=== PATIENT | female | born 1950 | race Caucasian/White ===

== ENCOUNTER 2017-12-11 09:48 | Day surgery (SDC) | payer MEDICARE, OTHER ==
[~2017-12-11] VITALS: Ht 167.6 cm; Wt 79.0 kg
[~2017-12-11 09:48] MED LIST: Aspirin EC81 MG PO; DULO60 PO; Janumet 50-1,01 EACH PO; Omeprazole20 M1 PO; ZESTORETIC 20-121 EA PO; Zocor40 MG PO
[2017-12-11] MEDS ORDERED: METF500 (10:47)
== END 2017-12-11 12:46 | disposition home or self-care (01) ==
LOC: ORSCSDS 09:48
DX: Z12.11 Encounter for screening for malignant neoplasm of colon (principal); Z86.010 Personal history of colon polyps; D12.0 Benign neoplasm of cecum; D12.2 Benign neoplasm of ascending colon; D12.3 Benign neoplasm of transverse colon; K57.30 Diverticulosis of large intestine without perforation or abscess without bleeding; K63.89 Other specified diseases of intestine; K64.8 Other hemorrhoids; E11.9 Type 2 diabetes mellitus without complications; I10 Essential (primary) hypertension; Z79.899 Other long term (current) drug therapy
CPT/HCPCS: 82947; 88305

== ENCOUNTER 2018-06-14 07:05 | Day surgery (SDC) | payer MEDICARE, OTHER ==
[~2018-06-14] VITALS: Ht 167.6 cm; Wt 76.0 kg
[~2018-06-14 07:05] MED LIST changes: +METF500
== END 2018-06-14 09:36 | disposition home or self-care (01) ==
LOC: ORSCSDS 07:05
PROVIDERS: Internal Medicine Gastroenterology
PROC: 0DBK8ZX Excision of Ascending Colon, Via Natural or Artificial Opening Endoscopic, Diagnostic (ICD-10-PCS; principal; 2018-06-14 08:30)
PROC: 0DBM8ZX Excision of Descending Colon, Via Natural or Artificial Opening Endoscopic, Diagnostic (ICD-10-PCS; principal; 2018-06-14 08:30)
PROC: 0DBL8ZX Excision of Transverse Colon, Via Natural or Artificial Opening Endoscopic, Diagnostic (ICD-10-PCS; principal; 2018-06-14 08:30)
DX: Z86.010 Personal history of colon polyps (principal); D12.2 Benign neoplasm of ascending colon; D12.3 Benign neoplasm of transverse colon; D12.4 Benign neoplasm of descending colon; K57.30 Diverticulosis of large intestine without perforation or abscess without bleeding; K63.89 Other specified diseases of intestine; K64.8 Other hemorrhoids; I10 Essential (primary) hypertension; E11.9 Type 2 diabetes mellitus without complications; K21.9 Gastro-esophageal reflux disease without esophagitis; Z79.899 Other long term (current) drug therapy
CPT/HCPCS: 82947; 88305; J0330; J1980; J2405; J7120

== ENCOUNTER 2021-04-08 11:51 | Day surgery (SDC) | payer MEDICARE, OTHER ==
[~2021-04-08] VITALS: Ht 167.6 cm; Wt 75.7 kg
[2021-04-08] MEDS ORDERED: TRULICITY0.75 MG/01 (12:36)
== END 2021-04-08 13:55 | disposition home or self-care (01) ==
LOC: ORSCSDS 11:51
PROVIDERS: Internal Medicine Gastroenterology
PROC: 0DBF8ZX Excision of Right Large Intestine, Via Natural or Artificial Opening Endoscopic, Diagnostic (ICD-10-PCS; principal; 2021-04-08 13:15)
PROC: 0DBK8ZX Excision of Ascending Colon, Via Natural or Artificial Opening Endoscopic, Diagnostic (ICD-10-PCS; principal; 2021-04-08 13:15)
DX: Z12.11 Encounter for screening for malignant neoplasm of colon (principal); Z86.010 Personal history of colon polyps; D12.2 Benign neoplasm of ascending colon; K52.9 Noninfective gastroenteritis and colitis, unspecified; K57.30 Diverticulosis of large intestine without perforation or abscess without bleeding; K64.1 Second degree hemorrhoids; I10 Essential (primary) hypertension; E11.9 Type 2 diabetes mellitus without complications; Z79.899 Other long term (current) drug therapy
CPT/HCPCS: 82947; 88305; J2704; J7120

== ENCOUNTER → 2022-02-16 | Outpatient (CLI) | payer MEDICARE, OTHER ==
[~2022-02-16] MED LIST changes: +TRULICITY0.75 MG/01
[2022-02-24 13:33] LABS: Stool Occult Bld Immuno 1 Negative (NEGATIVE)
== END | disposition home or self-care (01) ==
LOC: LAB SHORT 19:30
PROVIDERS: Nurse Practitioner Family
DX: Z12.11 Encounter for screening for malignant neoplasm of colon (principal)
CPT/HCPCS: G0328

== ENCOUNTER 2024-05-21 13:38 | Inpatient (IN) | payer MEDICARE, OTHER ==
[~2024-05-21] VITALS: Ht 167.6 cm; Wt 63.5 kg
[~2024-05-21 13:38] MED LIST changes: +ALLOPURINOL100 M1 PO; +Amitriptyline H10 MG PO; +CEFD300 PO; +JANUMET 50-1,01 EACH PO; -Janumet 50-1,01 EACH PO; +LOSARTAN POTASS25 M2 PO; -TRULICITY0.75 MG/01; +TRULICITY0.75 MG/01 SC
[2024-05-21] MEDS ORDERED: NS 1,000 ML IV SCH ×2 (14:05→16:55)
[2024-05-21 14:23] LABS: BASOPHILS ABSOLUTE AUTO 0.03 K/mm3 (0.00-0.23); BASOPHILS PERCENT AUTO 0 % (0-2); EOSINOPHILS ABSOLUTE AUTO 0.01 K/mm3 (0.00-0.68); EOSINOPHILS PERCENT AUTO 0 % (0-6); Hematocrit 40.2 % (33.0-51.0); Hemoglobin 14.2 g/dL (11.5-16.0); IMMATURE GRAN ABSOLUTE AUTO 0.04 K/mm3 (0.00-0.10); IMMATURE GRAN PERCENT AUTO 0 % (0-1); LYMPHOCYTES ABSOLUTE AUTO 0.45 K/mm3 (0.84-5.20); LYMPHOCYTES PERCENT AUTO 3 % (21-46); MONOCYTES ABSOLUTE AUTO 0.95 K/mm3 (0.16-1.47); MONOCYTES PERCENT AUTO 7 % (4-13); Mean Corpuscular HGB 30.7 pg (26.0-34.0); Mean Corpuscular HGB Conc 35.3 g/dL (31.5-36.5); Mean Corpuscular Volume 87 fL (80-100); Mean Platelet Volume 9.4 fL (9.1-12.4); NEUTROPHILS ABSOLUTE AUTO 12.18 K/mm3 (1.96-9.15); NEUTROPHILS PERCENT AUTO 89 % (41-73); Platelet Count 240 K/mm3 (150-400); RDW Coefficient Variation 13.4 % (11.7-14.2); RDW Standard Deviation 42.3 fL (35.1-46.3); Red Blood Cell Count 4.63 M/mm3 (3.80-5.20); White Blood Cell Count 13.66 K/mm3 (4.00-11.30)
[2024-05-21 14:39] LABS: International Normalized Ratio 1.07; Prothrombin Time Results 11.4 Sec (9.7-11.5)
[2024-05-21 14:45] LABS: Albumin, Blood 3.9 g/dL (3.4-5.0); Bun/Creatinine Ratio 29.2 (12.0-20.0); Calcium, Blood 9.6 mg/dL (8.5-10.1); Creatinine, Blood 0.38 mg/dL (0.40-1.00); Globulin, Blood 3.9 g/dL (2.2-4.0); Potassium, Blood 3.1 mmol/L (3.5-5.5); Total Protein, Blood 7.8 g/dL (6.4-8.2)
[2024-05-21] MEDS ORDERED: Acetaminophen 325 MG TABLET PO ONE (15:35)
[2024-05-21 16:08] LABS: Source, Urine Straight Cath
[2024-05-21 16:15] LABS: Bilirubin, Urine Neg (Neg); Blood, Urine Neg (Neg); Glucose Qualitative, Urine Neg (Neg); Ketones, Urine Neg (Neg); Leukocyte Esterase, Urine 2+ (Neg); Nitrite, Urine Pos (Neg); Protein, Urine Neg (Neg); Urobilinogen, Urine NORM (Normal)
[2024-05-21 16:37] LABS: Color, Urine Pale Yellow (P-Yellow)
[2024-05-21 16:38] LABS: Appearance, Urine Hazy (Clear)
[2024-05-21 16:39] LABS: Bacteria Many /hpf; Red Blood Cells, Urine 0-2 /hpf (0-2); Squamous Epithelial Cells Rare /hpf (Few); Transitional Epithelial Cells Rare /hpf (0-Rare)
[2024-05-21] MEDS ORDERED: CefTRIAXone Sodium 1,000 MG in NS 100 ML IV ONE (16:40)
[2024-05-21 17:02] LABS: Influenza A, PCR NEGATIVE (NEGATIVE); Influenza B, PCR NEGATIVE (NEGATIVE); Resp Syncytial Virus, PCR NEGATIVE (NEGATIVE); SARS-Cov-2 (COVID-19) PCR, MMC NEGATIVE (NEGATIVE)
[2024-05-21] MEDS ORDERED: Lactated Ringer's 1,000 ML IV SCH (17:25)
[2024-05-21] MEDS ORDERED: Acetaminophen 325 MG TABLET PO PRN (17:30)
[2024-05-21] MEDS ORDERED: Ondansetron HCl 2 MG / ML 2ML Vial IV PRN (17:30)
[2024-05-21] MEDS ORDERED: Potassium Chloride 20 MEQ TabCR PO ONE (18:00)
[2024-05-21 18:55] VITALS: BP 129/66
[2024-05-21] MEDS ORDERED: PRESERVISION A1 EAC1 PO (20:22)
[2024-05-21] MEDS ORDERED: ALIVE WOMEN S PO (20:23)
[2024-05-21] MEDS ORDERED: ROPI.25 PO (20:25)
[2024-05-21] MEDS ORDERED: Lactobacil 2-S.Thermo-Bifido 1 1 Cap PO SCH (21:00)
[2024-05-22] VITALS (7 sets, daily range): BP systolic 93–155; BP diastolic 65–80
[2024-05-22 05:32] LABS: Hematocrit 36.9 % (33.0-51.0); Hemoglobin 12.6 g/dL (11.5-16.0); Mean Corpuscular HGB 30.6 pg (26.0-34.0); Mean Corpuscular HGB Conc 34.1 g/dL (31.5-36.5); Mean Corpuscular Volume 90 fL (80-100); Mean Platelet Volume 9.7 fL (9.1-12.4); Platelet Count 227 K/mm3 (150-400); RDW Coefficient Variation 13.6 % (11.7-14.2); RDW Standard Deviation 44.8 fL (35.1-46.3); Red Blood Cell Count 4.12 M/mm3 (3.80-5.20); White Blood Cell Count 11.15 K/mm3 (4.00-11.30)
[2024-05-22 05:53] LABS: Bun/Creatinine Ratio 18.1 (12.0-20.0); Calcium, Blood 9.5 mg/dL (8.5-10.1); Creatinine, Blood 0.44 mg/dL (0.40-1.00); Potassium, Blood 3.5 mmol/L (3.5-5.5)
[2024-05-22] MEDS ORDERED: Omeprazole 20 MG CapCR PO SCH (06:00)
--- NOTE | 2024-05-22 06:03 | NUR ---
SHIFT SUMMARY: Pt is admitted for severe sepsis and is a full code. Is alert and able to make needs known. ADLs have been SBA. denies pain or discomfort when asked.
[2024-05-22] MEDS ORDERED: Insulin Human Lispro 100 Units/ML 3ML Syringe SC SCH (07:30)
[2024-05-22] MEDS ORDERED: rOPINIRole HCl 0.25 MG Tab PO PRN (08:35)
[2024-05-22] MEDS ORDERED: DULoxetine HCL 60 MG Capsule DR PO SCH (09:00)
[2024-05-22] MEDS ORDERED: Atorvastatin 10 MG Tab PO SCH (09:00)
[2024-05-22] MEDS ORDERED: Allopurinol 100 MG Tab PO SCH (09:00)
[2024-05-22] MEDS ORDERED: Losartan Potassium 25 MG Tab PO SCH (09:00)
[2024-05-22] MEDS ORDERED: Enoxaparin 40 MG/0.4 ML SYR SC SCH (09:00)
[2024-05-22] MEDS ORDERED: CefTRIAXone Sodium 1,000 MG in NS 100 ML IV SCH (18:00)
[2024-05-22] MEDS ORDERED: NS 250 ML IV PRN (18:25)
--- NOTE | 2024-05-22 19:40 | NUR ---
SHIFT SUMMARY: PT IS A/O X 4, STANDBY ASSIST, PLEASANT AND COOPERATIVE WITH CARE. PT HAD FALL TODAY IN THE BATHROOM. SHE DID NOT SUSTAIN INJURIES FROM FALL. SUPERFICIAL SCRATCHES ON BACK WERE THERE PRIOR TO ADMIT. PT CONTINUES TO HAVE URGENCY AND FREQUENCY WITH URINATION. SHE REPORTS SHE IS FEELING MUCH BETTER. PT REPORTED SHE HAD SLURRED SPEECH BEFORE COMING HERE TO HOSPITAL BUT IT HAS CLEARED UP. PT TOLERATING ROCEPHIN ABX.
[2024-05-22] MEDS ORDERED: Amitriptyline HCl 10 MG Tab PO SCH (21:00)
[2024-05-23 01:58] VITALS: BP 123/57
[2024-05-23 05:07] LABS: BASOPHILS ABSOLUTE AUTO 0.05 K/mm3 (0.00-0.23); BASOPHILS PERCENT AUTO 1 % (0-2); EOSINOPHILS ABSOLUTE AUTO 0.08 K/mm3 (0.00-0.68); EOSINOPHILS PERCENT AUTO 1 % (0-6); Hematocrit 41.2 % (33.0-51.0); Hemoglobin 13.6 g/dL (11.5-16.0); IMMATURE GRAN ABSOLUTE AUTO 0.03 K/mm3 (0.00-0.10); IMMATURE GRAN PERCENT AUTO 0 % (0-1); LYMPHOCYTES ABSOLUTE AUTO 2.13 K/mm3 (0.84-5.20); LYMPHOCYTES PERCENT AUTO 24 % (21-46); MONOCYTES PERCENT AUTO 11 % (4-13); Mean Corpuscular HGB 30.4 pg (26.0-34.0); Mean Corpuscular Volume 92 fL (80-100); Mean Platelet Volume 9.7 fL (9.1-12.4); NEUTROPHILS ABSOLUTE AUTO 5.76 K/mm3 (1.96-9.15); NEUTROPHILS PERCENT AUTO 64 % (41-73); Platelet Count 228 K/mm3 (150-400); RDW Coefficient Variation 13.5 % (11.7-14.2); RDW Standard Deviation 45.7 fL (35.1-46.3); Red Blood Cell Count 4.48 M/mm3 (3.80-5.20); White Blood Cell Count 9.05 K/mm3 (4.00-11.30)
[2024-05-23 05:45] LABS: Calcium, Blood 9.6 mg/dL (8.5-10.1); Creatinine, Blood 0.43 mg/dL (0.40-1.00); Potassium, Blood 3.2 mmol/L (3.5-5.5)
--- NOTE | 2024-05-23 06:21 | NUR ---
SHIFT SUMMARY: Pt admitted for severe sepsis and is a full code. Is alert and able to make needs known. Noted increase in confusion from night prior. Was harder to redirect. This LN was questioned several times why care was being provided in her home and would take 30sec or more to redirect that she was in the hospital and for her to understand this. Night prior she followed directions on calling and waiting for staff for help. Due to fall on day shift, fall precautions were started to include bed alarm. She was found after getting up with out calling for staff attempting to turn off bed alarm several times. Charge nurse arranged for a 1:1 to aid with care. ADLs were SBA during shift. Denied pain or discomfort when asked. At start of shift she did have a temp of 100.6 and was given some APAP that was effective.
[2024-05-23 07:32] VITALS: BP 141/90
[2024-05-23] MEDS ORDERED: MetFORMIN HCl 500 mg PO SCH (08:00)
[2024-05-23] MEDS ORDERED: Alogliptin Benzoate 6.25 MG TABLET PO SCH (09:00)
--- NOTE | 2024-05-23 15:15 | NUR ---
ASSUMED CARE AT 1510. REPORT RECEIVED FROM KAY DEL REAL. PATIENT A&OX3, FORGETFUL. 2 RN SKIN CHECK COMPLETED WITH SAUL DEL REAL, NO ISSUES NOTED. BED IN THE LOWEST POSITION. BED ALARM SET. CALL LIGHT WITHIN REACH.
--- NOTE | 2024-05-23 15:21 | NUR ---
GAVE REPORT TO DELIO VERNON AND PT TRANSPORTED FROM ROOM 325 TO 350 AT 1505.
[2024-05-23 15:29] VITALS: BP 146/76
[2024-05-23] MEDS ORDERED: rOPINIRole HCl 0.25 MG Tab PO SCH (17:00)
--- NOTE | 2024-05-23 17:18 | NUR ---
SHIFT SUMMARY A&OX2-3, FORGETFUL, AWARE OF HER FORGETFULNESS. CALLS APPROPRIATELY. AT BEDSIDE. DENIED ANY CP/PRESSURE, DIZZINESS OR SOB. COMPLAINED OF 3/10 PAIN TO BACK OF NECK/HEAD. MEDICATED PER EMAR. SBA TO BATHROOM WITH FWW. BED ALARM ON DUE TO IMPULSIVITY. CURRENTLY LAYING IN BED. BED IN THE LOWEST POSITION AND ALARM SET. CALL LIGHT WITHIN REACH.
[2024-05-23] MEDS ORDERED: COLCRYS0.6 M1 PO (18:29)
[2024-05-23] MEDS ORDERED: ATOR40TA PO (18:30)
[2024-05-23 19:30] VITALS: BP 138/85
[2024-05-24 03:49] VITALS: BP 138/77
--- NOTE | 2024-05-24 07:39 | NUR ---
END OF SHIFT SUMMARY PT A&O X4 WITH PERIODS OF FORGETFULNESS. EPISODE OF BRIEF CONFUSION DURING NIGHT. PT AMBULATING TO BR WITH STEADY, SLOW GAIT WITH FWW/GB AND 1XA FOR VERBAL CUEING TO MAINTAIN SAFETY. CONT/INCONT OF URINE.
[2024-05-24 07:42] VITALS: BP 158/81
[2024-05-24] MEDS ORDERED: CefTRIAXone Sodium 1,000 MG in NS 100 ML IV SCH (09:00)
[2024-05-24 16:15] VITALS: BP 160/79
--- NOTE | 2024-05-24 17:50 | NUR ---
SHIFT SUMMARY: PT A&O X3-4. OCCASIONALLY FORGETFUL. PT WILLINGLY PARTICIPATED IN PT/OT THIS SHIFT. 1P ASSIST c WALKER AND GB FOR ALL TRANSFERS. PT RECEIVED IV ABX THIS SHIFT. PT ANXIOUS TO GO HOME BUT UNDERSTANDS REASONING FOR CONTINUED IV ABX. HOSPITALIST BELIEVES PT ABLE TO GO HOME TOMORROW IF SYMPTOMS CONTINUE TO IMPROVE. AT BEDSIDE AGREEABLE TO PLAN. BED ALARM ON. CALL LIGHT IN REACH. BED IN LOWEST POSITION.
[2024-05-24 19:47] VITALS: BP 138/70
[2024-05-25 04:20] VITALS: BP 145/82
--- NOTE | 2024-05-25 04:37 | NUR ---
NOC SHIFT SUMMARY PT RESTED WELL ALL NIGHT WITH NO COMPLAINTS. AMBULATED EASILY WITH SUPERVISION TO THE BATHROOM. NO URINARY FREQUENCY. EXPECTING DISCHARGE TODAY. CALL LIGHT WITHIN REACH.
[2024-05-25 07:23] VITALS: BP 152/95
[2024-05-25 08:10] LABS: Hematocrit 40.2 % (33.0-51.0); Hemoglobin 13.9 g/dL (11.5-16.0); Mean Corpuscular HGB 30.4 pg (26.0-34.0); Mean Corpuscular HGB Conc 34.6 g/dL (31.5-36.5); Mean Corpuscular Volume 88 fL (80-100); Mean Platelet Volume 9.6 fL (9.1-12.4); Platelet Count 278 K/mm3 (150-400); RDW Coefficient Variation 13.3 % (11.7-14.2); RDW Standard Deviation 43.3 fL (35.1-46.3); Red Blood Cell Count 4.57 M/mm3 (3.80-5.20); White Blood Cell Count 7.11 K/mm3 (4.00-11.30)
[2024-05-25 08:22] LABS: Creatinine, Blood 0.5 mg/dL (0.40-1.00); Potassium, Blood 3.5 mmol/L (3.5-5.5)
[2024-05-25] MEDS ORDERED: LEVFLO500 PO (11:42)
--- NOTE | 2024-05-25 13:49 | NUR ---
DISCHARGE: PT D/C @1334 VIA WHEELCHAIR WITH . PO ABX FAXED TO [facility]. PT AWARE TO MAKE FOLLOW-UP APPOINTMENT WITH PCP. IV REMOVED FROM LFA W.O COMPLICATIONS. NO QUESTIONS AT TIME OF D/C.
== END 2024-05-25 13:34 | disposition home health service (06) | DRG 872 ==
LOC: ER 13:38 → MEDS 17:24
PROVIDERS: Emergency Medicine; Internal Medicine; Nurse Practitioner Acute Care; ADMIT Internal Medicine
DX: A41.51 Sepsis due to Escherichia coli [E. coli] (principal); N39.0 Urinary tract infection, site not specified; G93.49 Other encephalopathy; R65.20 Severe sepsis without septic shock; E11.9 Type 2 diabetes mellitus without complications; I10 Essential (primary) hypertension; E87.6 Hypokalemia; K21.9 Gastro-esophageal reflux disease without esophagitis; M10.9 Gout, unspecified; E78.5 Hyperlipidemia, unspecified; Z98.890 Other specified postprocedural states; Z79.899 Other long term (current) drug therapy
CPT/HCPCS: 0241U; 36415; 70450; 71045; 74178; 80048; 80053; 81001; 82947; 83605; 85025; 85027; 85610; 87040; 87077; 87086; 87186; 93005; 93010; 96360; 96361; 97110; 97129; 97130; 97162; 97165; 97530; 97535; 99285-25; A9270; J0696; J1650; J7030; J7050; J7120; Q9967

== ENCOUNTER → 2024-10-17 | Outpatient (CLI) | payer MEDICARE, OTHER ==
[~2024-10-17] MED LIST changes: +ALIVE WOMEN S PO; +ATOR40TA PO; +COLCRYS0.6 M1 PO; +LEVFLO500 PO; +PRESERVISION A1 EAC1 PO; +ROPI.25 PO
== END | disposition home or self-care (01) ==
LOC: LAB 18:48 → LAB SHORT 18:48
DX: R39.15 Urgency of urination (principal)
CPT/HCPCS: 87086

== ENCOUNTER 2025-02-03 04:00 | Inpatient (IN) | payer MEDICARE, OTHER ==
[~2025-02-03] VITALS: Ht 167.6 cm; Wt 71.7 kg
[2025-02-03 04:44] LABS: Source, Urine Straight Cath
[2025-02-03 04:50] LABS: Bilirubin, Urine Neg (Neg); Blood, Urine 1+ (Neg); Glucose Qualitative, Urine Neg (Neg); Ketones, Urine 2+ (Neg); Leukocyte Esterase, Urine 2+ (Neg); Nitrite, Urine Pos (Neg); Protein, Urine 3+ (Neg); Specific Gravity, Urine 1.015 (1.003-1.022); Urobilinogen, Urine NORM (Normal)
[2025-02-03 05:06] LABS: Appearance, Urine Hazy (Clear); Color, Urine Yellow (P-Yellow)
[2025-02-03 05:08] LABS: Bacteria Many /hpf; Red Blood Cells, Urine 0-2 /hpf (0-2); Squamous Epithelial Cells Few /hpf (Few); White Blood Cells, Urine 50-100 /hpf (0-5)
[2025-02-03] MEDS ORDERED: CefTRIAXone Sodium 1,000 MG in NS 50 ML IV ONE (05:10)
[2025-02-03] MEDS ORDERED: NS 1,000 ML IV SCH ×2 (05:20→08:00)
[2025-02-03 05:41] LABS: BASOPHILS ABSOLUTE AUTO 0.04 K/mm3 (0.00-0.23); BASOPHILS PERCENT AUTO 0 % (0-2); EOSINOPHILS PERCENT AUTO 0 % (0-6); Hematocrit 43.8 % (33.0-51.0); Hemoglobin 15.3 g/dL (11.5-16.0); IMMATURE GRAN ABSOLUTE AUTO 0.03 K/mm3 (0.00-0.10); IMMATURE GRAN PERCENT AUTO 0 % (0-1); LYMPHOCYTES ABSOLUTE AUTO 1.77 K/mm3 (0.84-5.20); LYMPHOCYTES PERCENT AUTO 14 % (21-46); MONOCYTES ABSOLUTE AUTO 0.52 K/mm3 (0.16-1.47); MONOCYTES PERCENT AUTO 4 % (4-13); Mean Corpuscular HGB 30.5 pg (26.0-34.0); Mean Corpuscular HGB Conc 34.9 g/dL (31.5-36.5); Mean Corpuscular Volume 87 fL (80-100); Mean Platelet Volume 10.6 fL (9.1-12.4); NEUTROPHILS ABSOLUTE AUTO 10.33 K/mm3 (1.96-9.15); NEUTROPHILS PERCENT AUTO 82 % (41-73); Platelet Count 328 K/mm3 (150-400); RDW Coefficient Variation 13.4 % (11.7-14.2); RDW Standard Deviation 41.3 fL (35.1-46.3); Red Blood Cell Count 5.02 M/mm3 (3.80-5.20); White Blood Cell Count 12.69 K/mm3 (4.00-11.30)
[2025-02-03 07:31] LABS: Albumin, Blood 4.1 g/dL (3.4-5.0); Albumin/Globulin Ratio 0.9 (0.8-1.8); Bilirubin, Total 0.6 mg/dL (0.1-1.0); Bun/Creatinine Ratio 24.4 (12.0-20.0); Creatinine, Blood 0.49 mg/dL (0.40-1.00); Globulin, Blood 4.4 g/dL (2.2-4.0); Potassium, Blood 3.4 mmol/L (3.5-5.5); Total Protein, Blood 8.5 g/dL (6.4-8.2)
[2025-02-03] MEDS ORDERED: Potassium Chloride 20 MEQ TabCR PO ONE (07:45)
[2025-02-03] MEDS ORDERED: FLU VACC TS2024-25(6MOS UP)/PF 45 MCG/0.5 ML SYRINGE IM SCH (08:00)
[2025-02-03] MEDS ORDERED: Lactobacil 2-S.Thermo-Bifido 1 1 Cap PO SCH (09:00)
[2025-02-03] MEDS ORDERED: Acetaminophen 325 MG TABLET PO PRN (09:45)
[2025-02-03] MEDS ORDERED: Ondansetron HCl 2 MG / ML 2ML Vial IV PRN (09:50)
[2025-02-03 10:00] VITALS: BP 155/98
[2025-02-03] MEDS ORDERED: rOPINIRole HCl 0.25 MG Tab PO PRN (11:10)
[2025-02-03] MEDS ORDERED: Insulin Human Lispro 100 Units/ML 3ML Syringe SC SCH (11:30)
[2025-02-03 12:00] VITALS: BP 178/89
[2025-02-03] MEDS ORDERED: Losartan Potassium 25 MG Tab PO SCH (12:00)
[2025-02-03] MEDS ORDERED: Allopurinol 100 MG Tab PO SCH (12:00)
[2025-02-03] MEDS ORDERED: DULoxetine HCL 60 MG Capsule DR PO SCH (12:00)
[2025-02-03] MEDS ORDERED: OMEP20ER PO (12:44)
[2025-02-03] MEDS ORDERED: ESTRADIOL42.5 GM VAG (12:45)
--- NOTE | 2025-02-03 13:03 | NUR ---
ADMISSION NOTE PATIENT ARRIVED TO ROOM 343 WITH NO IV ACCESS AND WITH NAUSEA AND EMESIS. IV PLACED VIA ULTRASOUND UPON ARRIVAL. IV ZOFRAN ADMINISTERED PER MAR AND PATIENT IV FLUIDS STARTED PER ORDER. PATIENT COMPLAINING OF HEADAHCE, TYLENOL ADMINISTERED. TELEMETRY PLACED PER ORDER, NORMAL SINUS IN 90s WITH BUNDLE BRANCH BLOCK. ADMISSION ASSESSMENT COMPLETED BY CHARGE NURSE PATIENT IS NOT A GOOD HISTORIAN AND CHARGE NURSE CALLED PATIENT'S SPOUSE, MATTHEW, TO OBTAIN NECESSARY INFORMATION. 1:1 SITTER AT BEDSIDE PATIENT IS IMPULSIVE AND CONFUSED. MUMBLED AND GARBLED SPEECH INTERMITTENTLY, ORIENTED TO SELF WITH NONSENSICLE SPEECH AT TIMES. PLAN TO TRANSFER PATIENT TO ROOM 351, REPORT GIVEN TO XAVIER KEBEDE.
[2025-02-03 16:14] VITALS: BP 172/83
[2025-02-03] MEDS ORDERED: MetFORMIN HCl 500 mg PO SCH (17:00)
[2025-02-03] MEDS ORDERED: Saxagliptin HCl 2.5 MG TABLET PO SCH (17:00)
--- NOTE | 2025-02-03 17:48 | NUR ---
SHIFT SUMMARY PT TRANSFERED FROM ROOM 343 THIS SHIFT TO ROOM 351. PT NOTED TO BE A&O TO SELF AND . PT IS A POOR HISTORIAN INFORMATION WAS GATHERED FROM PT IS CONFUSED. PT NOTED TO HAVE A UTI AND CONT WITH ABT. PT NOTED TO BE VERY IMPULSIVE AND UNABLE TO BE REDIRECTED. ALARM AND 1:1 SITTER IN PLACED. PT REMAINS BEDREST AT THIS TIME.
[2025-02-03] MEDS ORDERED: QUEtiapine Fumarate 50 MG TAB PO ONE (19:35)
[2025-02-03 20:21] VITALS: BP 164/103
[2025-02-03] MEDS ORDERED: Amitriptyline HCl 10 MG Tab PO SCH (21:00)
[2025-02-03] MEDS ORDERED: Beta-Carotene (A) W-C & E/Min 1 Tab PO SCH (21:00)
[2025-02-03] MEDS ORDERED: Famotidine 20 MG Tab PO SCH (21:00)
[2025-02-03] MEDS ORDERED: Colchicine 0.6 MG TAB PO SCH (21:00)
[2025-02-03 23:53] VITALS: BP 138/85
[2025-02-04 03:56] VITALS: BP 134/73
--- NOTE | 2025-02-04 04:04 | NUR ---
SHIFT SUMMARY PATIENT HAS REMAINED CONFUSED THROUGHOUT THE SHIFT. SHE DID SETTLE DOWN AND GET SOME SLEEP AFTER THE 1 TIME DOSE OF SEROQUEL WAS ADMINISTERED. PATIENT IS ORIENTED X1 AND HAS A SITTER AT THE BEDSIDE. SAFETY PRECAUTIONS ARE BEING MAINTAINED.
[2025-02-04] MEDS ORDERED: CefTRIAXone Sodium 1,000 MG in NS 100 ML IV SCH (06:00)
[2025-02-04 07:27] VITALS: BP 128/73
[2025-02-04 07:31] LABS: Calcium, Blood 9.1 mg/dL (8.5-10.1); Creatinine, Blood 0.56 mg/dL (0.40-1.00); Potassium, Blood 3.1 mmol/L (3.5-5.5)
[2025-02-04] MEDS ORDERED: Potassium Chloride 20 MEQ in NS 90 ML IV SCH (08:00)
[2025-02-04] MEDS ORDERED: Enoxaparin 40 MG/0.4 ML SYR SC SCH (09:00)
[2025-02-04] MEDS ORDERED: Atorvastatin 10 MG Tab PO SCH (09:00)
[2025-02-04] MEDS ORDERED: Multivitamins/Minerals 1 Tab PO SCH (09:00)
[2025-02-04] MEDS ORDERED: QUEtiapine Fumarate 50 MG TAB PO PRN (11:00)
[2025-02-04 15:10] VITALS: BP 147/67
--- NOTE | 2025-02-04 18:00 | NUR ---
SHIFT SUMMARY PT CONT LEVEL OF CARE. PT CONT TO REMAIN ALERT TO SELF ONLY AND BE VERY CONFUSED AND IMPULSIVE AND JUMBLED THOUGHT PROCESS. PT NOTED TO BE ASSIST X1 TO RESTROOM. NEW ORDER FOR IV POTASSIUM POTASSIUM LEVEL NOTED TO BE DEPELETED. PT CONT IV ABT FOR UTI.
[2025-02-04 19:07] VITALS: BP 131/79
[2025-02-04 23:30] VITALS: BP 135/73
--- NOTE | 2025-02-05 03:20 | NUR ---
SHIFT SUMMARY PATIENT HAS BEEN SLEEPING INTERMITTANTLY THROUGHOUT THE NIGHT. SHE IS CONFUSED AND IMPULSIVE WHEN SHE IS AWAKE. 1:1 SITTER REMAINS AT THE BEDSIDE. VITAL SIGNS ARE STABLE. SAFETY PRECAUTIONS ARE BEING MAINTAINED
[2025-02-05 04:20] VITALS: BP 128/70
[2025-02-05 06:33] LABS: Bun/Creatinine Ratio 27.6 (12.0-20.0); Creatinine, Blood 0.51 mg/dL (0.40-1.00); Potassium, Blood 3.7 mmol/L (3.5-5.5)
[2025-02-05 07:34] VITALS: BP 136/105
[2025-02-05] MEDS ORDERED: CIPR500 PO (12:19)
[2025-02-05] MEDS ORDERED: VISBIOME 112.51 EACH PO (12:21)
--- NOTE | 2025-02-05 13:53 | NUR ---
DISCHARGE SUMMARY PT DC THIS SHIFT DC INSTRUCTION GONE OVER WITH PT MATTHEW WHOM STATED UNDERSTANDING. [facility]
[2025-02-07] MEDS ORDERED: DULAGLUTIDE 0.75 MG/0.5 ML SC SCH (09:00)
== END 2025-02-05 13:50 | disposition home or self-care (01) | DRG 871 ==
LOC: ER 04:00 → MEDS 07:56
PROVIDERS: Emergency Medicine; ADMIT Internal Medicine
DX: A41.9 Sepsis, unspecified organism (principal); G92.8 Other toxic encephalopathy; N39.0 Urinary tract infection, site not specified; R65.20 Severe sepsis without septic shock; B96.1 Klebsiella pneumoniae [K. pneumoniae] as the cause of diseases classified elsewhere; E87.6 Hypokalemia; K21.9 Gastro-esophageal reflux disease without esophagitis; I10 Essential (primary) hypertension; E11.9 Type 2 diabetes mellitus without complications; F03.90 Unspecified dementia, unspecified severity, without behavioral disturbance, psychotic disturbance, mood disturbance, and anxiety; M10.9 Gout, unspecified; E78.5 Hyperlipidemia, unspecified; Z79.899 Other long term (current) drug therapy
CPT/HCPCS: 36415; 51701; 80048; 80053; 81001; 82947; 83605; 85025; 87040; 87077; 87086; 87186; 93005; 93010; 96361; 96365; 99285-25; A9270; J0696; J1650; J2405; J3480; J7030

== ENCOUNTER 2025-02-27 12:06 | Emergency (ER) | payer MEDICARE, OTHER ==
[~2025-02-27] VITALS: Ht 167.6 cm; Wt 69.0 kg
[~2025-02-27 12:06] MED LIST changes: +CIPR500 PO; +ESTRADIOL42.5 GM VAG; +OMEP20ER PO; +VISBIOME 112.51 EACH PO
[2025-02-27 13:16] LABS: BASOPHILS ABSOLUTE AUTO 0.02 K/mm3 (0.00-0.23); BASOPHILS PERCENT AUTO 0 % (0-2); EOSINOPHILS ABSOLUTE AUTO 0.43 K/mm3 (0.00-0.68); EOSINOPHILS PERCENT AUTO 3 % (0-6); Hemoglobin 14.8 g/dL (11.5-16.0); IMMATURE GRAN ABSOLUTE AUTO 0.06 K/mm3 (0.00-0.10); IMMATURE GRAN PERCENT AUTO 0 % (0-1); LYMPHOCYTES ABSOLUTE AUTO 0.73 K/mm3 (0.84-5.20); LYMPHOCYTES PERCENT AUTO 5 % (21-46); MONOCYTES ABSOLUTE AUTO 0.59 K/mm3 (0.16-1.47); MONOCYTES PERCENT AUTO 4 % (4-13); Mean Corpuscular HGB Conc 34.4 g/dL (31.5-36.5); Mean Corpuscular Volume 87 fL (80-100); Mean Platelet Volume 9.3 fL (9.1-12.4); NEUTROPHILS ABSOLUTE AUTO 12.99 K/mm3 (1.96-9.15); NEUTROPHILS PERCENT AUTO 88 % (41-73); Platelet Count 300 K/mm3 (150-400); RDW Coefficient Variation 13.6 % (11.7-14.2); RDW Standard Deviation 43.3 fL (35.1-46.3); Red Blood Cell Count 4.93 M/mm3 (3.80-5.20); White Blood Cell Count 14.82 K/mm3 (4.00-11.30)
[2025-02-27 13:17] LABS: Source, Urine Clean Catch
[2025-02-27 13:20] LABS: Appearance, Urine Clear (Clear); Bilirubin, Urine Neg (Neg); Blood, Urine Neg (Neg); Color, Urine Yellow (P-Yellow); Glucose Qualitative, Urine Neg (Neg); Ketones, Urine Neg (Neg); Leukocyte Esterase, Urine Neg (Neg); Nitrite, Urine Neg (Neg); Protein, Urine Neg (Neg); Specific Gravity, Urine 1.005 (1.003-1.022); Urobilinogen, Urine NORM (Normal)
[2025-02-27 13:42] LABS: Albumin, Blood 3.9 g/dL (3.4-5.0); Albumin/Globulin Ratio 0.9 (0.8-1.8); Bilirubin, Total 0.8 mg/dL (0.1-1.0); Bun/Creatinine Ratio 14.7 (12.0-20.0); Calcium, Blood 9.4 mg/dL (8.5-10.1); Creatinine, Blood 0.55 mg/dL (0.40-1.00); Globulin, Blood 4.2 g/dL (2.2-4.0); Potassium, Blood 3.3 mmol/L (3.5-5.5); Total Protein, Blood 8.1 g/dL (6.4-8.2)
[2025-02-27 15:00] VITALS: BP 151/72
== END 2025-02-27 15:30 | disposition home or self-care (01) ==
LOC: ER 12:06
PROVIDERS: Emergency Medicine
DX: R10.30 Lower abdominal pain, unspecified (principal); J44.9 Chronic obstructive pulmonary disease, unspecified; E11.22 Type 2 diabetes mellitus with diabetic chronic kidney disease; I12.0 Hypertensive chronic kidney disease with stage 5 chronic kidney disease or end stage renal disease; F03.90 Unspecified dementia, unspecified severity, without behavioral disturbance, psychotic disturbance, mood disturbance, and anxiety; N18.6 End stage renal disease; K21.9 Gastro-esophageal reflux disease without esophagitis; M10.9 Gout, unspecified; Z99.2 Dependence on renal dialysis; Z79.84 Long term (current) use of oral hypoglycemic drugs; Z79.85 Long-term (current) use of injectable non-insulin antidiabetic drugs; Z79.899 Other long term (current) drug therapy
CPT/HCPCS: 51701; 74177; 80053; 81003; 83605; 84145; 85025; 93005; 93010; 99285-25; Q9967

== ENCOUNTER 2025-03-01 09:01 | Emergency (ER) | payer MEDICARE, OTHER ==
[~2025-03-01] VITALS: Ht 167.6 cm; Wt 69.0 kg
[2025-03-01 11:03] LABS: Source, Urine Clean Catch
[2025-03-01 11:18] LABS: BASOPHILS ABSOLUTE AUTO 0.04 K/mm3 (0.00-0.23); BASOPHILS PERCENT AUTO 0 % (0-2); EOSINOPHILS ABSOLUTE AUTO 0.72 K/mm3 (0.00-0.68); EOSINOPHILS PERCENT AUTO 6 % (0-6); Hematocrit 40.6 % (33.0-51.0); Hemoglobin 14.1 g/dL (11.5-16.0); IMMATURE GRAN ABSOLUTE AUTO 0.04 K/mm3 (0.00-0.10); IMMATURE GRAN PERCENT AUTO 0 % (0-1); LYMPHOCYTES ABSOLUTE AUTO 1.21 K/mm3 (0.84-5.20); LYMPHOCYTES PERCENT AUTO 10 % (21-46); MONOCYTES ABSOLUTE AUTO 0.74 K/mm3 (0.16-1.47); MONOCYTES PERCENT AUTO 6 % (4-13); Mean Corpuscular HGB 30.1 pg (26.0-34.0); Mean Corpuscular HGB Conc 34.7 g/dL (31.5-36.5); Mean Corpuscular Volume 87 fL (80-100); Mean Platelet Volume 9.3 fL (9.1-12.4); NEUTROPHILS ABSOLUTE AUTO 9.77 K/mm3 (1.96-9.15); NEUTROPHILS PERCENT AUTO 78 % (41-73); Platelet Count 303 K/mm3 (150-400); RDW Coefficient Variation 13.6 % (11.7-14.2); RDW Standard Deviation 42.8 fL (35.1-46.3); Red Blood Cell Count 4.68 M/mm3 (3.80-5.20); White Blood Cell Count 12.52 K/mm3 (4.00-11.30)
[2025-03-01 11:39] LABS: Appearance, Urine Clear (Clear); Bilirubin, Urine Neg (Neg); Blood, Urine 1+ (Neg); Color, Urine Yellow (P-Yellow); Glucose Qualitative, Urine Neg (Neg); Ketones, Urine 1+ (Neg); Leukocyte Esterase, Urine Neg (Neg); Nitrite, Urine Neg (Neg); Protein, Urine Neg (Neg); Urobilinogen, Urine NORM (Normal)
[2025-03-01 11:40] LABS: Albumin, Blood 3.7 g/dL (3.4-5.0); Albumin/Globulin Ratio 0.8 (0.8-1.8); Bilirubin, Total 0.8 mg/dL (0.1-1.0); Calcium, Blood 9.6 mg/dL (8.5-10.1); Creatinine, Blood 0.5 mg/dL (0.40-1.00); Globulin, Blood 4.7 g/dL (2.2-4.0); Total Protein, Blood 8.4 g/dL (6.4-8.2)
[2025-03-01 12:08] LABS: Amorphous Light (0-Heavy); Bacteria Rare /hpf; Red Blood Cells, Urine 0-2 /hpf (0-2); Squamous Epithelial Cells Rare /hpf (Few); White Blood Cells, Urine 0-2 /hpf (0-5)
[2025-03-01 13:04] LABS: Free Thyroxine 1.2 ng/dL (0.70-1.60); Magnesium, Blood 1.7 mg/dL (1.6-2.4); Thyroid Stimulating Hormone 1.31 uIU/mL (0.360-4.800)
[2025-03-01] MEDS ORDERED: Potassium Chloride 20 MEQ TabCR PO ONE (13:10)
[2025-03-01] MEDS ORDERED: Magnesium Oxide 400 MG Tab PO ONE (13:10)
[2025-03-01 13:58] VITALS: BP 123/86
== END 2025-03-01 13:59 | disposition home or self-care (01) ==
LOC: ER 09:01
PROVIDERS: Emergency Medicine; Physician Assistant
DX: E87.6 Hypokalemia (principal); R41.0 Disorientation, unspecified; J44.9 Chronic obstructive pulmonary disease, unspecified; I12.0 Hypertensive chronic kidney disease with stage 5 chronic kidney disease or end stage renal disease; N18.6 End stage renal disease; Z99.2 Dependence on renal dialysis; E11.22 Type 2 diabetes mellitus with diabetic chronic kidney disease; F03.90 Unspecified dementia, unspecified severity, without behavioral disturbance, psychotic disturbance, mood disturbance, and anxiety; K21.9 Gastro-esophageal reflux disease without esophagitis; M10.9 Gout, unspecified; Z91.81 History of falling; Z79.84 Long term (current) use of oral hypoglycemic drugs; Z79.85 Long-term (current) use of injectable non-insulin antidiabetic drugs; Z79.899 Other long term (current) drug therapy
CPT/HCPCS: 70450; 80053; 81001; 83735; 84439; 84443; 85025; 93005; 93010; 99284-25; A9270

== ENCOUNTER 2025-09-14 15:43 | Emergency (ER) | payer MEDICARE, OTHER ==
[~2025-09-14] VITALS: Ht 167.6 cm; Wt 68.0 kg
[2025-09-14 16:51] LABS: Source, Urine Clean Catch
[2025-09-14 16:54] LABS: Bilirubin, Urine Neg (Neg); Color, Urine Yellow (P-Yellow); Glucose Qualitative, Urine Neg (Neg); Ketones, Urine Neg (Neg); Leukocyte Esterase, Urine 3+ (Neg); Protein, Urine 1+ (Neg); Specific Gravity, Urine 1.005 (1.003-1.022); Urobilinogen, Urine NORM (Normal)
[2025-09-14 17:00] LABS: Red Blood Cells, Urine 0-2 /hpf (0-2)
[2025-09-14 17:12] LABS: BASOPHILS ABSOLUTE AUTO 0.05 K/mm3 (0.00-0.23); BASOPHILS PERCENT AUTO 0 % (0-2); EOSINOPHILS ABSOLUTE AUTO 0.15 K/mm3 (0.00-0.68); EOSINOPHILS PERCENT AUTO 1 % (0-6); Hematocrit 41.0 % (33.0-51.0); Hemoglobin 14.3 g/dL (11.5-16.0); IMMATURE GRAN ABSOLUTE AUTO 0.04 K/mm3 (0.00-0.10); IMMATURE GRAN PERCENT AUTO 0 % (0-1); LYMPHOCYTES ABSOLUTE AUTO 2.59 K/mm3 (0.84-5.20); LYMPHOCYTES PERCENT AUTO 23 % (21-46); MONOCYTES ABSOLUTE AUTO 0.62 K/mm3 (0.16-1.47); MONOCYTES PERCENT AUTO 6 % (4-13); Mean Corpuscular HGB Conc 34.9 g/dL (31.5-36.5); Mean Corpuscular Volume 89 fL (80-100); NEUTROPHILS ABSOLUTE AUTO 7.70 K/mm3 (1.96-9.15); NEUTROPHILS PERCENT AUTO 69 % (41-73); NRBC ABSOLUTE 0.00 K/mm3 (0.00-0.02); NRBC Auto 0.0 /100 WBC (0.0-0.2); Platelet Count 266 K/mm3 (150-400); RDW Coefficient Variation 14.2 % (11.7-14.2); RDW Standard Deviation 46.1 fL (35.1-46.3)
[2025-09-14 17:35] LABS: Alanine Aminotransfer (ALT/SGP 35.0 U/L (12-78); Albumin, Blood 3.8 g/dL (3.4-5.0); Albumin/Globulin Ratio 0.9 (0.8-1.8); Anion Gap 6.0 mmol/L (3-11); Aspartate Aminotrans (AST/SGOT 23.0 U/L (12-37); Bilirubin, Total 0.8 mg/dL (0.1-1.0); Blood Urea Nitrogen 13.0 mg/dL (8-24); CO2, Blood 30.0 mmol/L (21-32); Calcium, Blood 10.0 mg/dL (8.5-10.1); Chloride, Blood 104.0 mmol/L (98-108); Creatinine, Blood 0.55 mg/dL (0.40-1.00); Globulin, Blood 4.2 g/dL (2.2-4.0); Glucose, Blood 109.0 mg/dL (70-99); Potassium, Blood 3.9 mmol/L (3.5-5.5); Sodium, Blood 136.0 mmol/L (136-145); Total Protein, Blood 8.0 g/dL (6.4-8.2)
[2025-09-14] MEDS ORDERED: RX Prepack 2 Tabs Ondansetron ODT 4MG UD ONE (19:15)
[2025-09-14] MEDS ORDERED: Trimethoprim/Sulfamethoxazole DS Tab PO ONE (19:15)
[2025-09-14] MEDS ORDERED: ONDA4 PO (19:16)
[2025-09-14] MEDS ORDERED: CEPH500 PO (19:16)
[2025-09-14 19:35] VITALS: BP 165/94
== END 2025-09-14 19:45 | disposition home or self-care (01) ==
LOC: ER 15:43
PROVIDERS: Student in an Organized Health Care Education/Training Program
DX: N39.0 Urinary tract infection, site not specified (principal); R41.0 Disorientation, unspecified; R11.2 Nausea with vomiting, unspecified; I10 Essential (primary) hypertension; E11.9 Type 2 diabetes mellitus without complications; Z79.899 Other long term (current) drug therapy; Z79.2 Long term (current) use of antibiotics
CPT/HCPCS: 80053; 81001; 83690; 84484; 85025; 87077; 87086; 87186; 99283-25; A9270

== ENCOUNTER 2025-09-16 18:26 | Emergency (ER) | payer MEDICARE, OTHER ==
[~2025-09-16] VITALS: Ht 167.6 cm; Wt 68.0 kg
[~2025-09-16 18:26] MED LIST changes: +CEPH500 PO; +ONDA4 PO
[2025-09-16 19:13] LABS: BASOPHILS ABSOLUTE AUTO 0.05 K/mm3 (0.00-0.23); BASOPHILS PERCENT AUTO 1 % (0-2); EOSINOPHILS ABSOLUTE AUTO 0.17 K/mm3 (0.00-0.68); EOSINOPHILS PERCENT AUTO 2 % (0-6); Hematocrit 38.5 % (33.0-51.0); Hemoglobin 13.1 g/dL (11.5-16.0); IMMATURE GRAN ABSOLUTE AUTO 0.01 K/mm3 (0.00-0.10); IMMATURE GRAN PERCENT AUTO 0 % (0-1); LYMPHOCYTES ABSOLUTE AUTO 2.01 K/mm3 (0.84-5.20); LYMPHOCYTES PERCENT AUTO 25 % (21-46); MONOCYTES ABSOLUTE AUTO 0.64 K/mm3 (0.16-1.47); MONOCYTES PERCENT AUTO 8 % (4-13); Mean Corpuscular HGB Conc 34.0 g/dL (31.5-36.5); Mean Corpuscular Volume 90 fL (80-100); NEUTROPHILS ABSOLUTE AUTO 5.28 K/mm3 (1.96-9.15); NEUTROPHILS PERCENT AUTO 65 % (41-73); NRBC ABSOLUTE 0.00 K/mm3 (0.00-0.02); NRBC Auto 0.0 /100 WBC (0.0-0.2); Platelet Count 250 K/mm3 (150-400); RDW Coefficient Variation 14.2 % (11.7-14.2); RDW Standard Deviation 46.8 fL (35.1-46.3)
[2025-09-16 19:23] LABS: Source, Urine Clean Catch
[2025-09-16 19:32] LABS: Alanine Aminotransfer (ALT/SGP 33.0 U/L (12-78); Albumin, Blood 3.6 g/dL (3.4-5.0); Albumin/Globulin Ratio 0.9 (0.8-1.8); Anion Gap 6.0 mmol/L (3-11); Aspartate Aminotrans (AST/SGOT 18.0 U/L (12-37); Bilirubin, Total 0.4 mg/dL (0.1-1.0); Blood Urea Nitrogen 11.0 mg/dL (8-24); CO2, Blood 32.0 mmol/L (21-32); Calcium, Blood 9.4 mg/dL (8.5-10.1); Chloride, Blood 106.0 mmol/L (98-108); Creatinine, Blood 0.63 mg/dL (0.40-1.00); Globulin, Blood 4.1 g/dL (2.2-4.0); Glucose, Blood 137.0 mg/dL (70-99); Potassium, Blood 3.6 mmol/L (3.5-5.5); Sodium, Blood 140.0 mmol/L (136-145); Total Protein, Blood 7.7 g/dL (6.4-8.2)
[2025-09-16 19:41] LABS: Bilirubin, Urine Neg (Neg); Color, Urine Yellow (P-Yellow); Glucose Qualitative, Urine Neg (Neg); Ketones, Urine Neg (Neg); Leukocyte Esterase, Urine Neg (Neg); Protein, Urine Neg (Neg); Specific Gravity, Urine 1.015 (1.003-1.022); Urobilinogen, Urine NORM (Normal)
[2025-09-16] MEDS ORDERED: RX Prepack 2 Tabs Ondansetron ODT 4MG UD ONE (21:25)
[2025-09-16 21:52] VITALS: BP 120/87
== END 2025-09-16 21:52 | disposition home or self-care (01) ==
LOC: ER 18:26
PROVIDERS: Student in an Organized Health Care Education/Training Program
DX: R10.9 Unspecified abdominal pain (principal); R11.2 Nausea with vomiting, unspecified; I12.0 Hypertensive chronic kidney disease with stage 5 chronic kidney disease or end stage renal disease; E11.22 Type 2 diabetes mellitus with diabetic chronic kidney disease; N18.6 End stage renal disease; F03.90 Unspecified dementia, unspecified severity, without behavioral disturbance, psychotic disturbance, mood disturbance, and anxiety; K21.9 Gastro-esophageal reflux disease without esophagitis; J44.9 Chronic obstructive pulmonary disease, unspecified; Z99.2 Dependence on renal dialysis; Z79.899 Other long term (current) drug therapy
CPT/HCPCS: 74177; 80053; 81003; 83690; 84484; 85025; 93005; 93010; 99284-25; A9270; Q9967